=== PATIENT | female | born 1935 | race Caucasian/White ===

== ENCOUNTER 2023-03-19 13:44 | Observation (INO) ==
[2023-03-19 13:56] LABS: POC Calcium, Ionized 1.19 (1.16-1.32); POC Creatinine 0.5 (0.6-1.2); POC Potassium 3.7 (3.3-5.1)
[2023-03-19] MEDS ORDERED: 0.9 % SODIUM CHLORIDE 1,000 ML IV ONE (14:00)
[2023-03-19] MEDS ORDERED: DIAZEPAM 10 MG/2 ML SYRINGE IV ONE (14:00)
[2023-03-19] MEDS ORDERED: MECLIZINE 25 MG TABLET PO ONE (15:00)
[2023-03-19] MEDS ORDERED: METOCLOPRAMIDE 10 MG/2 ML VIAL IV ONE (16:27)
[2023-03-19] MEDS ORDERED: DEXTROSE 31 GM ORAL.SUSP PO PRN (21:25)
[2023-03-19] MEDS ORDERED: MAGNESIUM SULFATE 2 GM/50 ML BAG IV PRN (21:25)
[2023-03-19] MEDS ORDERED: DEXTROSE 50% 50 ML VIAL IV PRN (21:25)
[2023-03-19] MEDS ORDERED: POLYETHYLENE GLYCOL 3350 17 GM PACKET PO PRN (21:25)
[2023-03-19] MEDS ORDERED: SENNOSIDES 1 TABLET PO PRN (21:25)
[2023-03-19] MEDS: INSULIN LISPRO 1 UNIT/0.01 ML UNIT SQ SCH (21:25)
[2023-03-19] MEDS ORDERED: ACETAMINOPHEN 325 MG TABLET PO PRN (21:25)
[2023-03-19] MEDS ORDERED: ONDANSETRON 4 MG/2 ML VIAL IV PRN (21:25)
[2023-03-19] MEDS ORDERED: POTASSIUM CHLORIDE 40 MEQ in DEXTROSE 5% IN WATER 500 ML IV PRN (21:25)
[2023-03-19] MEDS ORDERED: POTASSIUM CHLORIDE 20 MEQ TABLET PO PRN ×2 (21:25)
[2023-03-19] MEDS ORDERED: DIAZEPAM 10 MG/2 ML SYRINGE IV PRN (22:00)
[2023-03-19] MEDS: 0.9 % SODIUM CHLORIDE 10 ML SYRINGE IV SCH (22:35)
[2023-03-19] MEDS: 0.9 % SODIUM CHLORIDE 1,000 ML IV SCH (22:41)
[2023-03-19] MEDS: MECLIZINE 25 MG TABLET PO SCH (22:41)
[2023-03-19] MEDS: DOCUSATE SODIUM 100 MG CAPSULE PO SCH (22:42)
[2023-03-20] MEDS: METOCLOPRAMIDE 10 MG/2 ML VIAL IV SCH ×3 (00:09→11:54)
[2023-03-20] MEDS: 0.9 % SODIUM CHLORIDE 10 ML SYRINGE IV SCH ×2 (04:18→13:05)
[2023-03-20 04:54] LABS: Appearance,Urine CLEAR (Clear); Bilirubin,Urine Negative (Negative); Color,Urine YELLOW; Culture Indicated,Urine yes; Glucose,Urine (UA) Negative (Negative); Ketones,Urine Negative (Negative); Leukocyte Esterase,Urine Negative /uL (Negative); Mucus,Urine FEW /hpf; Nitrate,Urine Negative (Negative); Protein,Urine Negative (Negative); Specific Gravity,Urine 1.013 (1.000-1.035); Urine Blood 0.03 mg/dL (Negative); Urine RBC 7 /hpf (0-3); Urine Squamous Epithelial Cell < 1 /hpf (0-4); Urine WBC 11 /hpf (0-4); Urobilinogen,Urine Negative
[2023-03-20 06:55] LABS: Basophils # (Auto) 0.03 K/mcL (0.00-0.30); Basophils % (Auto) 0.4 % (0.0-2.0); Eosinophils # (Auto) 0.09 K/mcL (0.00-0.70); Eosinophils % (Auto) 1.3 % (0.0-7.0); Hematocrit 33.5 % (34.1-44.9); Hemoglobin 10.4 g/dL (11.2-15.7); Lymphocytes # (Auto) 2.54 K/mcL (1.50-4.80); Lymphocytes % (Auto) 35.3 % (15.5-49.0); Mean Cell Volume 90.5 fL (80.0-100.0); Mean Platelet Volume 11.1 fL (8.8-12.5); Monocytes # (Auto) 0.77 K/mcL (0.10-0.90); Monocytes % (Auto) 10.7 % (1.0-12.0); Neutrophils % (Auto) 52.2 % (38.0-78.0); Platelet Count 194 K/mcL (140-440); Red Cell Distribution Width 13.3 % (11.5-14.5); WBC 7.2 K/mcL (4.5-11.0)
[2023-03-20 07:17] LABS: ALT/SGPT 7 U/L (<40); AST/SGOT 11 U/L (<32); Albumin 3.5 gm/dL (3.2-5.2); Albumin/Globulin Ratio 1.3 (1.0-2.3); Alkaline Phosphatase 58 U/L (39-117); Bilirubin,Direct < 0.2 mg/dL (0-0.3); Bilirubin,Total 0.6 mg/dL (0.1-1.0); Blood Urea Nitrogen 13 mg/dL (8-23); Calcium 8.6 mg/dL (8.6-10.4); Carbon Dioxide 27 mmol/L (22-30); Chloride 107 mmol/L (96-108); Globulin 2.6 gm/dL (2.2-3.7); Glomerular Filtration Rate 82; Glucose 98 mg/dL (70-105); Lactate Dehydrogenase 138 U/L (135-225); Phosphorous 2.7 mg/dL (2.5-4.5); Triglycerides 126 mg/dL (<150); Uric Acid 3.3 mg/dL (2.5-8.0)
[2023-03-20] MEDS: INSULIN LISPRO 1 UNIT/0.01 ML UNIT SQ SCH ×2 (07:44→11:39)
[2023-03-20] MEDS: 0.9 % SODIUM CHLORIDE 1,000 ML IV SCH (08:28)
[2023-03-20] MEDS: MECLIZINE 25 MG TABLET PO SCH ×2 (08:55→13:04)
[2023-03-20] MEDS: DOCUSATE SODIUM 100 MG CAPSULE PO SCH (08:55)
[2023-03-20] MEDS ORDERED: ENOXAPARIN 40 MG/0.4 ML SYRINGE SQ SCH (09:00)
[2023-03-20] MEDS ORDERED: DIAZEPAM 10 MG/2 ML SYRINGE IV PRN (22:01)
== END 2023-03-20 13:51 | disposition home or self-care (01) ==
LOC: ED 13:44 → MEDSUR 13:44
PROVIDERS: ADMIT Internal Medicine; ATTEND Internal Medicine